=== PATIENT | female | born 1985 | race Asian ===

== ENCOUNTER → 2019-06-09 | Outpatient (CLI) | payer OTHER | LOC: COL.RAD 13:27 | DX: K81.9 Cholecystitis, unspecified (principal) ==

== ENCOUNTER → 2019-06-28 | Outpatient (CLI) | payer OTHER | LOC: COL.RAD 06:51 | DX: K80.20 Calculus of gallbladder without cholecystitis without obstruction (principal) | CPT/HCPCS: A9537; J2270 ==

== ENCOUNTER 2019-07-14 10:10 | Day surgery (SDC) | payer OTHER ==
[2019-07-14] VITALS (7 sets, daily range): BP systolic 94–132; BP diastolic 53–73; PULSE 79–84; TEMP 98.2
[~2019-07-14] VITALS: Ht 160 cm; Wt 76.5 kg
[2019-07-14] MEDS ORDERED: [UNRECOGNIZED DRUG - OTHER] PO (11:16)
[2019-07-14] MEDS ORDERED: AMOXICILLIN875 MG PO (11:17)
[2019-07-14] MEDS ORDERED: ADVIL200 MG PO (11:17)
[2019-07-14] MEDS ORDERED: NORCO 325 MG-51 TAB PO ×2 (11:17→15:07)
[2019-07-14] MEDS ORDERED: ATIVAN 0.50.5 MG/TAB PO (11:18)
--- NOTE | 2019-07-14 11:19 | NUR ---
TO RM 2 AT 1017- CALL LIGHT IN REACH FRIEND AT BEDSIDE.
[2019-07-14] MEDS ORDERED: COLACE 100100 MG/CAP PO (15:08)
[2019-07-14] MEDS ORDERED: MOTRIN 600600 MG/TAB PO (15:08)
--- NOTE | 2019-07-14 15:50 | NUR ---
Patient arrives back to [facility] drowsy, reports pain in upper/center abdomen, denies nausea. Patient educated that pain is most likely from gas/air pressing on her diaphragm from laparoscopic surgery. Patient monitor applied, vitals stable. Patient has 4 small incisions on abdomen that are secured with swiftset, incisions are clean/dry/intact, no dressings on incisions. Patient's friend brought to bedside. Patient given muffin and juice.
--- NOTE | 2019-07-14 16:30 | NUR ---
Patient complains of mid/upper abdominal pain still. Patient has ate muffin and crackers well, denies nausea. Patient reports she would like to try a pain pill and then rest a little bit.
--- NOTE | 2019-07-14 17:00 | NUR ---
Patient resting/sleeping comfortably in bed, vitals stable, friend at bedside. Patient report and care given to LUBNA Herrera. Patient will attempt to get up to go the restroom in approximately 15 minutes.
--- NOTE | 2019-07-14 17:10 | NUR ---
Patient up to the bathroom and is able to void and dresses self in the bathroom.
--- NOTE | 2019-07-14 17:30 | NUR ---
Patient sitting on cart and IV discontinued. Given dismissal instructions and dismissed to home per private vehicle driven by friend and taken to the front door per wheelchair and assisted into vehicle with instructions in hand. Scripts for [place] and Motrin in hand.
== END 2019-07-14 17:30 | disposition home or self-care (01) ==
LOC: SDCO 10:10
DX: K80.10 Calculus of gallbladder with chronic cholecystitis without obstruction (principal); D50.9 Iron deficiency anemia, unspecified; F41.9 Anxiety disorder, unspecified; K21.9 Gastro-esophageal reflux disease without esophagitis; G43.909 Migraine, unspecified, not intractable, without status migrainosus; J30.2 Other seasonal allergic rhinitis; F41.0 Panic disorder [episodic paroxysmal anxiety]; G47.00 Insomnia, unspecified; Z79.52 Long term (current) use of systemic steroids; Z83.3 Family history of diabetes mellitus; Z88.8 Allergy status to other drugs, medicaments and biological substances; Z87.442 Personal history of urinary calculi
CPT/HCPCS: J0690; J1100; J1885; J2250; J2405; J2704; J3010; J7120; Q9967

== ENCOUNTER 2019-08-03 06:28 | Day surgery (SDC) | payer OTHER ==
[~2019-08-03] VITALS: Ht 160 cm; Wt 75.6 kg
[~2019-08-03 06:28] MED LIST: ADVIL200 MG PO; AMOXICILLIN875 MG PO; ATIVAN 0.50.5 MG/TAB PO; COLACE 100100 MG/CAP PO; MOTRIN 600600 MG/TAB PO; NORCO 325 MG-51 TAB PO; [UNRECOGNIZED DRUG - OTHER] PO
[2019-08-03] MEDS ORDERED: PRILOSEC 20MG20 MG PO (06:46)
[2019-08-03 07:13] VITALS: BP 108/68; PULSE 96; TEMP 97.7
[2019-08-03] MEDS ORDERED: ZOFRAN 4MG T4 MG/TAB PO (07:24)
--- NOTE | 2019-08-03 07:41 | NUR ---
Pt taken via cart by ENDO RN to GI suite for scheduled procedure.
[2019-08-03 08:35] VITALS: BP 115/65; PULSE 86; TEMP 97.5
--- NOTE | 2019-08-03 08:35 | NUR ---
Pt returned via cart to [facility] 3. Pt remains drowsy and kept on cart rather than having pt transfer to recliner in bay. VSS-see flowsheet. Side rails up, call light placed in reach. Covered in warm blankets to rest at this time.
[2019-08-03 08:50] VITALS: BP 110/66; PULSE 77
[2019-08-03 09:05] VITALS: BP 104/69; PULSE 60
[2019-08-03 09:20] VITALS: BP 100/82; PULSE 71
[2019-08-03 09:55] VITALS: BP 122/80; PULSE 68
--- NOTE | 2019-08-03 10:15 | NUR ---
Pt tolerated crackers and juice. VS remain stable. Discharge teaching completed, verbalized understanding. Pt taken via wheelchair to [employer] vehicle for wv home.
== END 2019-08-03 10:15 | disposition home or self-care (01) ==
LOC: SDCO 06:28
DX: K92.1 Melena (principal); D50.9 Iron deficiency anemia, unspecified; F41.9 Anxiety disorder, unspecified; K21.9 Gastro-esophageal reflux disease without esophagitis; G47.00 Insomnia, unspecified; G43.909 Migraine, unspecified, not intractable, without status migrainosus; J30.2 Other seasonal allergic rhinitis; Z79.52 Long term (current) use of systemic steroids; Z90.49 Acquired absence of other specified parts of digestive tract; Z83.3 Family history of diabetes mellitus
CPT/HCPCS: J2250; J2405; J3010; J7030

== ENCOUNTER 2020-02-07 18:02 | Emergency (ER) | payer OTHER ==
[~2020-02-07] VITALS: Ht 165 cm; Wt 75.0 kg
[~2020-02-07 18:02] MED LIST changes: +PRILOSEC 20MG20 MG PO; +ZOFRAN 4MG T4 MG/TAB PO
[2020-02-07 18:06] VITALS: TEMP 98.3
[2020-02-07 18:46] LABS: BASO % 0.3 % (0.0-2.0); EOS # 0.1 (0.0-0.7); EOS % 1.4 % (0-4.0); GRAN # 3.9 (1.4-6.5); GRAN % 60.5 % (42.2-75.2); HEMATOCRIT 42.4 % (37.0-47.0); HEMOGLOBIN 13.6 g/dl (12.5-16.0); LYMPH % 31.2 % (20.0-51.0); MEAN CELL VOLUME 87 fl (80.0-100.0); MEAN CORPUSCULAR HEMOGLOBIN 28 pg (27.0-31.0); MEAN CORPUSCULAR HGB CONC 32 g/dl (33.0-37.0); MONO # 0.4 (0.1-0.6); MONO % 6.3 % (1.7-9.3); PLATELET COUNT 254 K/mm3 (130-400); RED BLOOD COUNT 4.88 M/mm3 (4.10-5.30); REDCELL DISTRIBUTION WIDTH-CV 13.2 % (11.5-14.5)
[2020-02-07 18:58] LABS: COLLECTION METHOD CLEAN CATCH
[2020-02-07 19:04] LABS: C-REACTIVE PROTEIN 0.8 mg/dL (0.0-0.9); LIPASE 95 U/L (23-300)
[2020-02-07 19:05] LABS: MUCOUS Present /lpf; PH 5 (5-8); URINE APPEARANCE Hazy; URINE BACTERIA Rare /hpf; URINE BILIRUBIN Negative (NEGATIVE); URINE BLOOD Negative (NEGATIVE); URINE COLOR Yellow; URINE GLUCOSE Negative (NEGATIVE); URINE KETONE Negative (NEGATIVE); URINE LEUKOCYTE ESTERASE Negative (NEGATIVE); URINE NITRATE Negative (NEGATIVE); URINE PROTEIN(semi-quant) Negative (NEGATIVE); URINE RBC 0-2 /hpf; URINE UROBILINOGEN Negative (NEGATIVE)
[2020-02-07 19:23] LABS: TROPONIN-I < 0.012 ng/mL (0.000-0.035)
[2020-02-07 20:20] LABS: ALBUMIN 3.8 gm/dL (3.5-5.0); BILIRUBIN,TOTAL 0.2 mg/dL (0.0-1.0); CALCIUM 8.4 mg/dL (8.4-10.2); CREATININE, serum 0.46 (0.52-1.25); POTASSIUM 4.1 mmol/L (3.4-5.0); TOTAL PROTEIN 6.7 gm/dL (6.4-8.2)
[2020-02-07 20:23] VITALS: BP 113/77; PULSE 66
== END 2020-02-07 20:37 | disposition home or self-care (01) ==
LOC: COL.ER 18:02
PROVIDERS: Emergency Medicine
DX: N63.0 Unspecified lump in unspecified breast (principal)
CPT/HCPCS: J2405; J3010; J7030; Q9967

== ENCOUNTER → 2020-02-12 | Outpatient (CLI) | payer OTHER | LOC: MC.RAD 08:26 | DX: N63.24 Unspecified lump in the left breast, lower inner quadrant (principal) | CPT/HCPCS: G0279 ==

== ENCOUNTER 2020-05-16 08:24 | Day surgery (SDC) | payer OTHER ==
[2020-05-16] VITALS (8 sets, daily range): BP systolic 111–121; BP diastolic 53–70; PULSE 62–76; TEMP 98.3
[~2020-05-16] VITALS: Ht 13.7 cm; Wt 74.5 kg
[2020-05-16] MEDS ORDERED: INDERAL 10MG10 MG PO (09:22)
[2020-05-16] MEDS ORDERED: NURTEC ODT75 MG PO (09:23)
[2020-05-16] MEDS ORDERED: UBRELVY50 MG PO (09:24)
[2020-05-16] MEDS ORDERED: ZOPICLONE PO (09:27)
[2020-05-16] MEDS ORDERED: ATIVAN 0.50.5 MG/TAB PO (09:28)
[2020-05-16] MEDS ORDERED: ALDACTONE 25MG25 M1 PO (09:28)
[2020-05-16] MEDS ORDERED: CELEXA 20MG20 MG/TAB PO (09:29)
--- NOTE | 2020-05-16 09:56 | NUR ---
PATIENT TAKEN TO RADIOLOGY
[2020-05-16] MEDS ORDERED: MOTRIN 600600 MG/TAB PO (13:48)
[2020-05-16] MEDS ORDERED: NORCO 325 MG-51 TAB PO (13:48)
[2020-05-16] MEDS ORDERED: School release (13:50)
--- NOTE | 2020-05-16 14:05 | NUR ---
TO RM 7 PER CART FROM PACU. AROUSES TO NAME AND FALLS BACK TO SLEEP. MELO SET OVER INCISION CLEAN DRY INTACT. C/O " SLIGHT NAUSEA" AND DENIES PAIN OR DISCOMFORT AT THIS TIME.
--- NOTE | 2020-05-16 14:20 | NUR ---
PATIENT CONTINUES TO SLEEP QUIETLY
--- NOTE | 2020-05-16 14:35 | NUR ---
NO CHANGES, PATIENT SLEEPING QUIETLY.
--- NOTE | 2020-05-16 15:35 | NUR ---
MORE AWAKE AND TALKING TO STAFF. RECEIVED CRANBERRY JUICE AND CRACKERS.
--- NOTE | 2020-05-16 16:00 | NUR ---
PATIENT A LITTLE DROWSY ATE 100% CRACKERS AND JUICE., PATIENT TEXTING ON PHONE.
--- NOTE | 2020-05-16 16:35 | NUR ---
AMBULATED TO BATHROOM WITH ASSIST AND TOLERATED WELL. PATIENT AMBULATED BACK TO AND STARTED GETTING DRESSED.
--- NOTE | 2020-05-16 16:55 | NUR ---
RECEIVED DISCHARGE INSTRUCTIONS AND VERBALIZED UNDERSTANDING. IV/INT DISCONTINUED
--- NOTE | 2020-05-16 17:01 | NUR ---
DISCHARGED PER BY NURSTING STAFF TO PRIVATE CAR IN CARE OF FRIEND.
== END 2020-05-16 17:02 | disposition home or self-care (01) ==
LOC: SDCO 08:24
DX: N64.89 Other specified disorders of breast (principal); D50.9 Iron deficiency anemia, unspecified; F41.9 Anxiety disorder, unspecified; K21.9 Gastro-esophageal reflux disease without esophagitis; G43.909 Migraine, unspecified, not intractable, without status migrainosus; J30.9 Allergic rhinitis, unspecified; I10 Essential (primary) hypertension; Z20.828 Contact with and (suspected) exposure to other viral communicable diseases; Z90.49 Acquired absence of other specified parts of digestive tract; Z83.3 Family history of diabetes mellitus
CPT/HCPCS: J0690; J1100; J1885; J2250; J2405; J2704; J2795; J3010; J7120

== ENCOUNTER → 2020-05-27 | Outpatient (CLI) | payer OTHER ==
[~2020-05-27] MED LIST changes: +ALDACTONE 25MG25 M1 PO; +CELEXA 20MG20 MG/TAB PO; +INDERAL 10MG10 MG PO; +NURTEC ODT75 MG PO; +School release; +UBRELVY50 MG PO; +ZOPICLONE PO
== END ==
LOC: COL.RAD 13:26
DX: G43.709 Chronic migraine without aura, not intractable, without status migrainosus (principal); R20.0 Anesthesia of skin

== ENCOUNTER 2020-07-31 23:36 | Emergency (ER) | payer OTHER ==
[~2020-07-31] VITALS: Ht 155 cm; Wt 24.0 kg
[2020-07-31 23:42] VITALS: BP 115/79; TEMP 97.9
[2020-07-31] MEDS ORDERED: PRILOSEC10 MG PO (23:59)
[2020-07-31] MEDS ORDERED: CLARITIN 1010 MG/TAB PO (23:59)
[2020-08-01 00:15] LABS: COLLECTION METHOD CLEAN CATCH
[2020-08-01 00:26] LABS: MUCOUS Present /lpf; PH 7 (5-8); SQUAMOUS EPITHELIAL 0-2 /hpf; URINE APPEARANCE Hazy; URINE BACTERIA None Seen /hpf; URINE BILIRUBIN Negative (NEGATIVE); URINE BLOOD Negative (NEGATIVE); URINE COLOR Yellow; URINE GLUCOSE Negative (NEGATIVE); URINE KETONE Negative (NEGATIVE); URINE LEUKOCYTE ESTERASE Negative (NEGATIVE); URINE NITRATE Negative (NEGATIVE); URINE PROTEIN(semi-quant) Negative (NEGATIVE); URINE RBC 0-2 /hpf; URINE UROBILINOGEN Negative (NEGATIVE)
[2020-08-01 00:36] LABS: BASO % 0.2 % (0.0-2.0); EOS # 0.1 (0.0-0.7); EOS % 1.2 % (0-4.0); GRAN # 5.6 (1.4-6.5); GRAN % 66.4 % (42.2-75.2); HEMATOCRIT 38.3 % (37.0-47.0); HEMOGLOBIN 12.7 g/dl (12.5-16.0); LYMPH # 2.2 (1.2-3.4); LYMPH % 25.9 % (20.0-51.0); MEAN CELL VOLUME 85 fl (80.0-100.0); MEAN CORPUSCULAR HEMOGLOBIN 28 pg (27.0-31.0); MEAN CORPUSCULAR HGB CONC 33 g/dl (33.0-37.0); MEAN PLATELET VOLUME 10.9 fl (7.4-10.4); MONO # 0.5 (0.1-0.6); MONO % 5.9 % (1.7-9.3); PLATELET COUNT 214 K/mm3 (130-400); RED BLOOD COUNT 4.51 M/mm3 (4.10-5.30); REDCELL DISTRIBUTION WIDTH-CV 11.6 % (11.5-14.5)
[2020-08-01 00:48] LABS: ALBUMIN 4.3 gm/dL (3.5-5.0); BILIRUBIN,TOTAL 0.5 mg/dL (0.0-1.0); CREATININE, serum 0.52 (0.52-1.25); POTASSIUM 3.6 mmol/L (3.4-5.0); TOTAL PROTEIN 7.3 gm/dL (6.4-8.2)
[2020-08-01] MEDS ORDERED: ZOFRAN 4MG T4 MG/TAB PO (01:04)
[2020-08-01 01:16] VITALS: PULSE 77
== END 2020-08-01 01:16 | disposition home or self-care (01) ==
LOC: COL.ER 23:36
PROVIDERS: Nurse Practitioner Primary Care
DX: M54.5 Low back pain (principal); R11.2 Nausea with vomiting, unspecified; K21.9 Gastro-esophageal reflux disease without esophagitis; Z32.02 Encounter for pregnancy test, result negative
CPT/HCPCS: J1170; J2405

== ENCOUNTER → 2020-08-30 | Outpatient (CLI) | payer OTHER ==
[~2020-08-30] MED LIST changes: +CLARITIN 1010 MG/TAB PO; +PRILOSEC10 MG PO
== END ==
LOC: BHSO 10:47
DX: F41.0 Panic disorder [episodic paroxysmal anxiety] (principal)

== ENCOUNTER → 2020-09-19 | Outpatient (CLI) | payer OTHER | LOC: BHSO 14:00 | DX: F41.1 Generalized anxiety disorder (principal) ==

== ENCOUNTER → 2020-09-24 | Outpatient (CLI) | payer OTHER | LOC: BHSO 10:33 | DX: F33.1 Major depressive disorder, recurrent, moderate (principal) | CPT/HCPCS: G0463 ==

== ENCOUNTER → 2020-10-03 | Outpatient (CLI) | payer OTHER | LOC: MC.RAD 13:00 | DX: N64.4 Mastodynia (principal) ==

== ENCOUNTER → 2020-10-08 | Outpatient (CLI) | payer OTHER | LOC: BHSO 14:01 | DX: F41.1 Generalized anxiety disorder (principal) ==

== ENCOUNTER 2021-01-13 09:26 | Emergency (ER) | payer OTHER ==
[~2021-01-13] VITALS: Ht 156 cm; Wt 74.0 kg
[2021-01-13 09:33] VITALS: TEMP 97.1
[2021-01-13 11:00] LABS: COLLECTION METHOD CLEAN CATCH
[2021-01-13 11:18] LABS: AMORPHOUS CRYSTAL Present /uL; MUCOUS Present /lpf; PH 8 (5-8); SQUAMOUS EPITHELIAL 0-2 /hpf; URINE APPEARANCE Cloudy; URINE BACTERIA Rare /hpf; URINE BILIRUBIN Negative (NEGATIVE); URINE BLOOD Negative (NEGATIVE); URINE COLOR Yellow; URINE GLUCOSE Negative (NEGATIVE); URINE KETONE Negative (NEGATIVE); URINE LEUKOCYTE ESTERASE Negative (NEGATIVE); URINE NITRATE Negative (NEGATIVE); URINE PROTEIN(semi-quant) 1+ (NEGATIVE); URINE RBC 0-2 /hpf; URINE UROBILINOGEN Negative (NEGATIVE)
[2021-01-13 12:02] LABS: LIPASE 86 U/L (23-300); TROPONIN-I < 0.012 ng/mL (0.000-0.035)
[2021-01-13 12:25] LABS: ALBUMIN 4.1 gm/dL (3.5-5.0); BILIRUBIN,TOTAL 0.3 mg/dL (0.0-1.0); CALCIUM 9.2 mg/dL (8.4-10.2); CREATININE, serum 0.53 (0.52-1.25); POTASSIUM 4.1 mmol/L (3.4-5.0); TOTAL PROTEIN 7.2 gm/dL (6.4-8.2)
[2021-01-13 12:29] LABS: BASO % 0.4 % (0.0-2.0); EOS # 0.1 (0.0-0.7); EOS % 1.6 % (0-4.0); GRAN # 3.4 (1.4-6.5); GRAN % 61.3 % (42.2-75.2); HEMOGLOBIN 12.4 g/dl (12.5-16.0); LYMPH # 1.5 (1.2-3.4); LYMPH % 27.8 % (20.0-51.0); MEAN CELL VOLUME 83 fl (80.0-100.0); MEAN CORPUSCULAR HEMOGLOBIN 27 pg (27.0-31.0); MEAN CORPUSCULAR HGB CONC 33 g/dl (33.0-37.0); MEAN PLATELET VOLUME 11.6 fl (7.4-10.4); MONO # 0.5 (0.1-0.6); MONO % 8.7 % (1.7-9.3); PLATELET COUNT 206 K/mm3 (130-400); REDCELL DISTRIBUTION WIDTH-CV 13.2 % (11.5-14.5)
[2021-01-13] MEDS ORDERED: PREDNISONE50 MG PO (12:47)
[2021-01-13] MEDS ORDERED: BENADRYL25 M2 PO (12:47)
[2021-01-13 13:06] VITALS: BP 111/49; PULSE 66
== END 2021-01-13 13:10 | disposition home or self-care (01) ==
LOC: COL.ER 09:26
PROVIDERS: Emergency Medicine
DX: R10.13 Epigastric pain (principal); M54.9 Dorsalgia, unspecified; R11.0 Nausea; R06.02 Shortness of breath; I25.10 Atherosclerotic heart disease of native coronary artery without angina pectoris

== ENCOUNTER → 2021-03-06 | Outpatient (CLI) | payer OTHER ==
[~2021-03-06] MED LIST changes: +BENADRYL25 M2 PO; +PREDNISONE50 MG PO; +ZOFRAN ODT4 MG PO
== END ==
LOC: COL.PUL 11:17
DX: R06.09 Other forms of dyspnea (principal)

== ENCOUNTER 2021-03-11 10:28 | Observation (INO) | payer OTHER ==
[~2021-03-11] VITALS: Ht 106.7 cm; Wt 72.0 kg
[~2021-03-11 10:28] MED LIST changes: -ZOFRAN ODT4 MG PO
[2021-03-11 12:32] LABS: BASO % 0.2 % (0.0-2.0); EOS % 0.2 % (0-4.0); GRAN # 9.1 (1.4-6.5); GRAN % 87.6 % (42.2-75.2); HEMATOCRIT 38.4 % (37.0-47.0); HEMOGLOBIN 12.1 g/dl (12.5-16.0); LYMPH # 0.8 (1.2-3.4); MEAN CELL VOLUME 83 fl (80.0-100.0); MEAN CORPUSCULAR HEMOGLOBIN 26 pg (27.0-31.0); MEAN CORPUSCULAR HGB CONC 32 g/dl (33.0-37.0); MEAN PLATELET VOLUME 11.6 fl (7.4-10.4); MONO # 0.4 (0.1-0.6); MONO % 3.8 % (1.7-9.3); PLATELET COUNT 256 K/mm3 (130-400); RED BLOOD COUNT 4.61 M/mm3 (4.10-5.30)
[2021-03-11 12:42] LABS: ALBUMIN 4.5 gm/dL (3.5-5.0); BILIRUBIN,TOTAL 0.3 mg/dL (0.0-1.0); C-REACTIVE PROTEIN 0.6 mg/dL (0.0-0.9); CALCIUM 9.3 mg/dL (8.4-10.2); CREATININE, serum 0.52 (0.52-1.25); TOTAL PROTEIN 8.1 gm/dL (6.4-8.2)
[2021-03-11] MEDS ORDERED: ZOFRAN ODT4 MG PO (13:28)
--- NOTE | 2021-03-11 17:35 | NUR ---
Pt. A/O x4, currently resting in bed. Assesment completed, Med Rec completed, Covid-19 screening completed. Infectious disease screening completed. Pt. was able to independently ambulate to bathroom. Pt.states she was dizzy upon standing but was not dizzy while sitting.Pt. appears drowsy and states she wishes to rest. Pt denies pain/discomfort. Full N/S infusing at 125ml/hr via right a/c. Call light within reach. Nurse informed patient to please call for any assistance.
--- NOTE | 2021-03-11 19:12 | NUR ---
Received report from Flavio. Patient complains of headache and vomiting. Luann RN tried giving Imitrex but she refused due to active vomiting. Benadryl and Reglan given instead.
[2021-03-11 19:28] VITALS: BP 105/58; PULSE 94; TEMP 98.4
[2021-03-11 23:19] VITALS: BP 105/53; PULSE 84; TEMP 98.4
[2021-03-12 03:21] VITALS: BP 94/62; PULSE 81; TEMP 98.2
--- NOTE | 2021-03-12 05:20 | NUR ---
Assisted patient to the bathroom and upon returning to bed she states that her right hand is swollen. Neuro checks was done, her right hand grasp is weaker than the left. Checked patency of IV on her right AC. No phlebitis or infiltration noted. IV has good blood return and flushes well. With complains of headache 5/10. Last vomiting was last night. Called Delmi OLSEN and she went to patient's room. She ordered venous duplex.
[2021-03-12 07:09] LABS: BASO % 0.2 % (0.0-2.0); EOS # 0.1 (0.0-0.7); EOS % 1.1 % (0-4.0); GRAN # 3.8 (1.4-6.5); GRAN % 58.9 % (42.2-75.2); HEMOGLOBIN 10.5 g/dl (12.5-16.0); LYMPH % 30.8 % (20.0-51.0); MEAN CELL VOLUME 84 fl (80.0-100.0); MEAN CORPUSCULAR HEMOGLOBIN 26 pg (27.0-31.0); MEAN CORPUSCULAR HGB CONC 31 g/dl (33.0-37.0); MEAN PLATELET VOLUME 11.7 fl (7.4-10.4); MONO # 0.6 (0.1-0.6); MONO % 8.7 % (1.7-9.3); PLATELET COUNT 241 K/mm3 (130-400); RED BLOOD COUNT 4.03 M/mm3 (4.10-5.30); REDCELL DISTRIBUTION WIDTH-CV 14.3 % (11.5-14.5)
[2021-03-12 07:18] LABS: HEMATOCRIT 33.9 % (37.0-47.0)
[2021-03-12 07:22] LABS: CALCIUM 8.2 mg/dL (8.4-10.2); CREATININE, serum 0.43 (0.52-1.25); POTASSIUM 3.5 mmol/L (3.4-5.0)
[2021-03-12 07:31] VITALS: BP 108/58; PULSE 74; TEMP 98.5
--- NOTE | 2021-03-12 09:36 | NUR ---
Pt. sitting in bed with friend by bed side. Pt. states she feels much better, free of n/v, dizziness. Pt. states her right hand is stinging. Right hand has visible swelling. Venous duplex showed no complications. Fluids infusing N/S at 125ml/hr. Pt. expresses no further needs at this time. Call light within reach.
[2021-03-12] MEDS ORDERED: ZOFRAN ODT4 MG PO (09:43)
--- NOTE | 2021-03-12 09:55 | NUR ---
KAM met with the patient and her friend to discuss discharge plan. The patient lives in [place] with her two children. Her , Chante, is in [place] right now. She states that her [id number] has been staying with her since the pandemic and her [id number] is watching her children while she is here. She reports independence with ADLs and does not have any DME. The patient's PCP is Dr. Trudi James and Vanessa Banks. She reports no difficulties obtaining her meds. The patient does not have a DPOA-HC. The patient plans to return home with her family upon discharge. No additional needs at this time.
[2021-03-12 11:33] VITALS: BP 114/55; PULSE 73; TEMP 98.2
--- NOTE | 2021-03-12 11:54 | NUR ---
Pt. in bed sitting upright with friend bedside. A/O x4, denies pain, v/s stable. Nurse instructed patient and educated patient of all relevant dishcarge information. Pt. confirms understanding. Nurse answered all questions. IV right a/c DC'd, no redness, swelling, drainage at site. Pt. escorted out of hosital by [facility].
--- NOTE | 2021-03-12 12:12 | NUR ---
First visit from the water server. No needs right now.
== END 2021-03-12 12:10 | disposition home or self-care (01) ==
LOC: COL.ER 10:28 → MEDICAL 13:59
PROVIDERS: Family Medicine; Physician Assistant; ADMIT Internal Medicine
DX: G43.909 Migraine, unspecified, not intractable, without status migrainosus (principal); K21.9 Gastro-esophageal reflux disease without esophagitis; R22.31 Localized swelling, mass and lump, right upper limb; F41.9 Anxiety disorder, unspecified; Z98.890 Other specified postprocedural states; Z88.8 Allergy status to other drugs, medicaments and biological substances; Z79.899 Other long term (current) drug therapy; Z90.89 Acquired absence of other organs; Z90.49 Acquired absence of other specified parts of digestive tract
CPT/HCPCS: G0378; J0595; J0780; J1200; J2405; J2550; J2765; J7030; J7120

== ENCOUNTER 2021-12-04 09:43 | Emergency (ER) | payer OTHER ==
[~2021-12-04] VITALS: Ht 165.1 cm; Wt 65.9 kg
[~2021-12-04 09:43] MED LIST changes: +ZOFRAN ODT4 MG PO
[2021-12-04 09:49] VITALS: TEMP 98.3
[2021-12-04 10:22] LABS: COLLECTION METHOD CLEAN CATCH
[2021-12-04 10:29] LABS: PH 6 (5-8); SQUAMOUS EPITHELIAL 0-2 /hpf (0-10); URINE APPEARANCE Clear (CLEAR/HAZY); URINE BACTERIA Rare /hpf (NONE SEEN); URINE BILIRUBIN Negative (NEGATIVE); URINE BLOOD Negative (NEGATIVE); URINE COLOR Yellow (YELLOW); URINE GLUCOSE Negative (NEGATIVE); URINE KETONE Negative (NEGATIVE); URINE LEUKOCYTE ESTERASE Negative (NEGATIVE); URINE NITRATE Negative (NEGATIVE); URINE PROTEIN(semi-quant) Negative (NEGATIVE); URINE RBC None Seen /hpf (0-2); URINE UROBILINOGEN Negative (NEGATIVE)
[2021-12-04 11:45] LABS: ALBUMIN 3.8 gm/dL (3.5-5.0); BILIRUBIN,TOTAL 0.5 mg/dL (0.2-1.2); CALCIUM 8.4 mg/dL (8.4-10.2); CREATININE, serum 0.66 mg/dL (0.57-1.11); POTASSIUM 4.5 mmol/L (3.5-4.5); TOTAL PROTEIN 6.9 gm/dL (6.2-8.1)
[2021-12-04 11:54] LABS: BASO % 0.6 % (0.0-2.0); EOS # 0.1 K/mm3 (0.0-0.7); GRAN # 4.4 K/mm3 (1.4-6.5); GRAN % 62.3 % (42.2-75.2); HEMATOCRIT 37.8 % (37.0-47.0); HEMOGLOBIN 11.8 g/dl (12.5-16.0); LYMPH # 1.9 K/mm3 (1.2-3.4); LYMPH % 27.5 % (20.0-51.0); MEAN CELL VOLUME 80 fl (80.0-100.0); MEAN CORPUSCULAR HEMOGLOBIN 25 pg (27-31); MEAN CORPUSCULAR HGB CONC 31 g/dl (33.0-37.0); MEAN PLATELET VOLUME 11.3 fl (7.4-10.4); MONO # 0.5 K/mm3 (0.1-0.6); MONO % 7.5 % (1.7-9.3); PLATELET COUNT 223 K/mm3 (130-400); RED BLOOD COUNT 4.75 M/mm3 (4.10-5.30)
[2021-12-04] MEDS ORDERED: ZOFRAN ODT4 MG PO (12:21)
[2021-12-04 12:23] VITALS: BP 107/60; PULSE 64
== END 2021-12-04 12:23 | disposition home or self-care (01) ==
LOC: COL.ER 09:43
PROVIDERS: Emergency Medicine
DX: D25.9 Leiomyoma of uterus, unspecified (principal); D64.9 Anemia, unspecified; F41.9 Anxiety disorder, unspecified; K21.9 Gastro-esophageal reflux disease without esophagitis; G43.909 Migraine, unspecified, not intractable, without status migrainosus; Z90.49 Acquired absence of other specified parts of digestive tract; Z32.02 Encounter for pregnancy test, result negative; Z79.899 Other long term (current) drug therapy
CPT/HCPCS: J2270; J2405; J7030; Q9967

== ENCOUNTER 2022-01-31 20:12 | Emergency (ER) | payer OTHER ==
[~2022-01-31] VITALS: Ht 165.1 cm; Wt 54.5 kg
[2022-01-31 20:25] VITALS: TEMP 97.7
[2022-01-31 21:42] LABS: COLLECTION METHOD CLEAN CATCH
[2022-01-31 21:47] LABS: BASO % 0.5 % (0.0-2.0); EOS # 0.1 K/mm3 (0.0-0.7); EOS % 1.5 % (0.0-4.0); GRAN # 3.6 K/mm3 (1.4-6.5); GRAN % 55.4 % (42.2-75.2); HEMOGLOBIN 10.6 g/dl (12.5-16.0); LYMPH # 2.2 K/mm3 (1.2-3.4); LYMPH % 34.2 % (20.0-51.0); MEAN CELL VOLUME 77 fl (80.0-100.0); MEAN CORPUSCULAR HEMOGLOBIN 24 pg (27-31); MEAN CORPUSCULAR HGB CONC 31 g/dl (33.0-37.0); MONO # 0.5 K/mm3 (0.1-0.6); MONO % 8.2 % (1.7-9.3); PLATELET COUNT 118 K/mm3 (130-400); RED BLOOD COUNT 4.38 M/mm3 (4.10-5.30); REDCELL DISTRIBUTION WIDTH-CV 14.7 % (11.5-14.5)
[2022-01-31 21:48] LABS: HEMATOCRIT 33.8 % (37.0-47.0)
[2022-01-31 21:51] LABS: AMORPHOUS CRYSTAL Present (NOT PRESENT); MUCOUS Present (NOT PRESENT); PH 6 (5-8); URINE APPEARANCE Cloudy (CLEAR/HAZY); URINE BACTERIA Rare /hpf (NONE SEEN); URINE BILIRUBIN Negative (NEGATIVE); URINE BLOOD Negative (NEGATIVE); URINE COLOR Yellow (YELLOW); URINE GLUCOSE Negative (NEGATIVE); URINE KETONE Negative (NEGATIVE); URINE LEUKOCYTE ESTERASE 3+ (NEGATIVE); URINE NITRATE Negative (NEGATIVE); URINE PROTEIN(semi-quant) Negative (NEGATIVE); URINE UROBILINOGEN Negative (NEGATIVE)
[2022-01-31 22:03] LABS: BILIRUBIN,TOTAL 0.1 mg/dL (0.2-1.2); C-REACTIVE PROTEIN 0.32 mg/dL (0.00-0.50); CREATININE, serum 0.72 mg/dL (0.57-1.11); POTASSIUM 4.3 mmol/L (3.5-4.5); TOTAL PROTEIN 7.6 gm/dL (6.2-8.1)
[2022-01-31] MEDS ORDERED: CEFTIN500 MG PO ×2 (23:02)
[2022-01-31] MEDS ORDERED: ZOFRAN ODT4 MG PO ×2 (23:03)
[2022-01-31 23:16] VITALS: BP 112/63; PULSE 88
[2022-02-01] MEDS ORDERED: CEFTIN500 MG PO (13:11)
[2022-02-01] MEDS ORDERED: ZOFRAN ODT4 MG PO (13:11)
== END 2022-01-31 23:16 | disposition home or self-care (01) ==
LOC: COL.ER 20:12
PROVIDERS: Physician Assistant
DX: N39.0 Urinary tract infection, site not specified (principal)
CPT/HCPCS: J2765; J7030

== ENCOUNTER 2023-03-12 09:59 | Day surgery (SDC) | payer OTHER ==
[~2023-03-12] VITALS: Ht 165.1 cm; Wt 73.1 kg
[~2023-03-12 09:59] MED LIST changes: +CEFTIN500 MG PO
--- NOTE | 2023-03-12 10:20 | NUR ---
PATIENT ARRIVES AT THIS TIME AMBULATORY. PATIENT IS ALERT AND ORIENTED X4, DENIES ANY PAIN AT THIS TIME. PATIENT IS ESCORTED TO HER ROOM WHERE EXPLANATION OF PROCEDURE AND TIMELINE IS GIVEN AND SHE VERBALIZES UNDERSTANDING OF EDUCATION. PATIENT LSCTAB, VSS AND RECORDED. CONSENTS ARE SIGNED.
[2023-03-12 11:04] VITALS: BP 131/64; PULSE 94; TEMP 97.6
[2023-03-12] MEDS ORDERED: ALLEGRA-D 24HR1 T24 PO (11:18)
[2023-03-12] MEDS ORDERED: SINGULAIR 110 MG/TAB PO (11:18)
[2023-03-12] MEDS ORDERED: OMNICEF 300MG300 MG PO (11:19)
[2023-03-12] MEDS ORDERED: TESSALON PERLE200 MG PO (11:20)
[2023-03-12 14:17] VITALS: BP 106/90; PULSE 88; TEMP 97.4
[2023-03-12] MEDS ORDERED: MOTRIN 600600 MG/TAB PO (14:19)
[2023-03-12] MEDS ORDERED: NORCO 325 MG-51 TAB PO (14:19)
[2023-03-12 14:30] VITALS: BP 118/58; PULSE 80
[2023-03-12 14:45] VITALS: BP 122/60; PULSE 79
[2023-03-12 15:00] VITALS: BP 126/55; PULSE 84; TEMP 99
--- NOTE | 2023-03-12 20:12 | NUR ---
[id number] PT TO [facility] BAY 2 FROM OR S/P HET, ANAL SCULPTING, COLONOSCOPY SLEEPY, PLACED ON MONITOR, VSS ON 6L O2. ICE BAG TO RUE (IV INFILTRATE), LEFT EJ IV PATENT. RECEIVED REPORT AND ASSUMED CARE OF PT FROM ADRIANA AND SEN WARM BLANKETS REFRESHED, FOOD AND DRINK PROVIDED - TOLERATING WELL FRIENDS/RIDE HOME BROUGHT TO BEDSIDE WARM BLANKETS REFRESHED THRU OUT [facility] STAY. PT HAS REMAINED A&O, NAD, VSS ON RA, TOLERATING PO, IS WITHOUT SIGNIFICANT COMPLAINT, WITH STEADY GAIT THRU OUT [facility] STAY EJ IV D/C'D, PRESSURE HELD, THEN BANDAGED - HEMASTASIS VERIFIED. D/C INSTRUCTIONS, ANY FOLLOW UP REVIEWED AND HANDED TO PT. ALL QUESTIONS AND CONCERNS ADDRESSED TO PT SATISFACTION. TAKEN TO EXIT VIA W/C WITH ALL BELONGINGS AND PAPERWORK IN HAND BY [facility] RN ASSISTED INTO PASSENGER SEAT OF V. FRIEND TO DRIVE HOME.
[2023-03-14] MEDS ORDERED: LIDO3%CREAM TP (11:45)
== END 2023-03-12 15:30 | disposition home or self-care (01) ==
LOC: SDCO 09:59
DX: K64.8 Other hemorrhoids (principal); K64.4 Residual hemorrhoidal skin tags; K62.1 Rectal polyp; K92.1 Melena
CPT/HCPCS: J2250; J2704; J7120

== ENCOUNTER 2023-09-15 09:14 | Emergency (ER) | payer OTHER ==
[~2023-09-15] VITALS: Ht 406.4 cm; Wt 75.9 kg
[~2023-09-15 09:14] MED LIST changes: +ALLEGRA-D 24HR1 T24 PO; +LIDO3%CREAM TP; +OMNICEF 300MG300 MG PO; +SINGULAIR 110 MG/TAB PO; +TESSALON PERLE200 MG PO
[2023-09-15 09:26] VITALS: TEMP 97.4
[2023-09-15 12:05] VITALS: BP 122/88; PULSE 80
== END 2023-09-15 12:06 | disposition home or self-care (01) ==
LOC: COL.ER 09:14
DX: G43.909 Migraine, unspecified, not intractable, without status migrainosus (principal)
CPT/HCPCS: J1200; J1885; J2550; J7030

== ENCOUNTER 2023-10-29 11:49 | Emergency (ER) | payer OTHER ==
[~2023-10-29] VITALS: Ht 154.9 cm; Wt 77.3 kg
[2023-10-29 12:14] VITALS: TEMP 98.3
[2023-10-29 13:12] LABS: COLLECTION METHOD CLEAN CATCH
[2023-10-29 13:24] LABS: URINE APPEARANCE Cloudy (CLEAR/HAZY); URINE COLOR Yellow (YELLOW); URINE GLUCOSE Negative (NEGATIVE); URINE PROTEIN(semi-quant) 1+ (NEGATIVE)
[2023-10-29 13:25] LABS: URINE BACTERIA Occasional /hpf (NONE SEEN); URINE BLOOD Negative (NEGATIVE); URINE KETONE Negative (NEGATIVE); URINE NITRATE Negative (NEGATIVE); URINE UROBILINOGEN 0.2 E.U/dL (0.2-1.0)
[2023-10-29 13:40] LABS: BASO % 0.2 % (0.0-2.0); EOS % 0.3 % (0.0-4.0); GRAN # 12.6 K/mm3 (1.4-6.5); GRAN % 89.7 % (42.2-75.2); HEMOGLOBIN 13.5 g/dl (12.5-16.0); LYMPH # 0.6 K/mm3 (1.2-3.4); LYMPH % 4.3 % (20.0-51.0); MEAN CELL VOLUME 84 fl (80.0-100.0); MEAN CORPUSCULAR HEMOGLOBIN 26 pg (27-31); MEAN CORPUSCULAR HGB CONC 31 g/dl (33.0-37.0); MEAN PLATELET VOLUME 11.3 fl (7.4-10.4); MONO # 0.7 K/mm3 (0.1-0.6); MONO % 5.1 % (1.7-9.3); PLATELET COUNT 233 K/mm3 (130-400); RED BLOOD COUNT 5.15 M/mm3 (4.10-5.30); REDCELL DISTRIBUTION WIDTH-CV 13.6 % (11.5-14.5)
[2023-10-29 14:12] LABS: ALBUMIN 3.9 gm/dL (3.5-5.0); BILIRUBIN,TOTAL 0.5 mg/dL (0.2-1.2); CALCIUM 8.8 mg/dL (8.4-10.2); CREATININE, serum 0.61 mg/dL (0.57-1.11); POTASSIUM 3.8 mmol/L (3.5-4.5); TOTAL PROTEIN 7.1 gm/dL (6.2-8.1)
[2023-10-29] MEDS ORDERED: CEPHALEXIN500 M1 PO (15:08)
[2023-10-29] MEDS ORDERED: ZOFRAN ODT4 MG PO (15:08)
[2023-10-29 16:07] VITALS: BP 139/87; PULSE 100
== END 2023-10-29 16:34 | disposition home or self-care (01) ==
LOC: COL.ER 11:49
PROVIDERS: Emergency Medicine
DX: R10.9 Unspecified abdominal pain (principal); D72.829 Elevated white blood cell count, unspecified; Z90.49 Acquired absence of other specified parts of digestive tract
CPT/HCPCS: J1885; J2405; J7120

== ENCOUNTER → 2024-03-14 | Outpatient (CLI) | payer OTHER ==
[~2024-03-14] MED LIST changes: +CEPHALEXIN500 M1 PO
== END ==
LOC: COL.RAD 15:10
DX: M79.89 Other specified soft tissue disorders (principal)